=== PATIENT | female | born 1935 | race Caucasian/White ===

== ENCOUNTER → 2016-10-19 | Outpatient (CLI) | payer MEDICARE ==
[~2016-10-19] MED LIST: ALDOMET500 MG PO; ASPIRIN ADULT L81 M1 PO; ASPIRIN1 POW PO; CATAPRES0.2 MG PO; CLONIDINE; FLAGYL250 MG PO; LABETALOL; LABETALOL300 MG PO; METHYLDOPA PO; MULTI VITAMINS1 TAB PO; ZITHROMAX250 MG PO; ZOCOR40 MG
== END | disposition home or self-care (01) ==
LOC: CARD 09:18
DX: I35.1 Nonrheumatic aortic (valve) insufficiency (principal); R01.1 Cardiac murmur, unspecified; I35.0 Nonrheumatic aortic (valve) stenosis; I34.0 Nonrheumatic mitral (valve) insufficiency; I07.1 Rheumatic tricuspid insufficiency

== ENCOUNTER → 2017-03-15 | Outpatient (CLI) | payer MEDICARE ==
[2017-03-15 15:39] LABS: HEMATOCRIT 37.2 % (37.0-47.0); HEMOGLOBIN 12.6 g/dl (12.0-16.0); MEAN CELL VOLUME 95.1 fl (81.0-99.0); MEAN CORPUSCULAR HGB 32.2 pg (27.0-31.0); MEAN CORPUSCULAR HGB CONC 33.9 g/dl (33.0-37.0); MEAN PLATELET VOLUME 11.7 fl (9.6-12.3); PLATELET COUNT AUTOMATED 113 10*3/uL (130-400); RED BLOOD COUNT 3.91 10*6/uL (4.10-5.10); RED CELL DISTRI WIDTH 13.9 % (0-14.5); WHITE BLOOD COUNT 6.8 10*3/uL (4.8-10.8)
[2017-03-15 15:53] LABS: ACT PARTIAL THROMBO TIME 25.7 SECONDS (20.8-31.5); INTERNATIONAL NORM RATIO 1.1 (2.0-3.5)
[2017-03-15 16:05] LABS: BASOPHILS 3 % (0-1); TOTAL CELLS COUNTED 100 #CELLS
[2017-03-15 16:07] LABS: PLATELET SUFFICIENCY NORMAL (NORMAL)
== END | disposition home or self-care (01) ==
LOC: LAB 13:49 → US 14:00
PROVIDERS: Internal Medicine
DX: R89.9 Unspecified abnormal finding in specimens from other organs, systems and tissues (principal); D68.8 Other specified coagulation defects

== ENCOUNTER → 2017-10-27 | Outpatient (CLI) | payer MEDICARE | END | disposition home or self-care (01) | LOC: US 09:16 | DX: I51.7 Cardiomegaly (principal); I35.1 Nonrheumatic aortic (valve) insufficiency; I35.0 Nonrheumatic aortic (valve) stenosis; I34.8 Other nonrheumatic mitral valve disorders; Z86.79 Personal history of other diseases of the circulatory system; Z90.49 Acquired absence of other specified parts of digestive tract ==

== ENCOUNTER 2019-01-09 10:12 | Emergency (ER) | payer MEDICARE ==
[~2019-01-09] VITALS: Wt 84.4 kg
[2019-01-09 11:32] VITALS: BP 144/78
[2019-01-09] MEDS ORDERED: NORVASC5 MG PO (11:36)
== END 2019-01-09 11:37 | disposition home or self-care (01) ==
LOC: ED 10:12
DX: I10 Essential (primary) hypertension (principal); Z91.041 Radiographic dye allergy status; Z88.1 Allergy status to other antibiotic agents; Z79.899 Other long term (current) drug therapy; Z79.82 Long term (current) use of aspirin; Z90.710 Acquired absence of both cervix and uterus

== ENCOUNTER 2019-09-14 14:46 | Emergency (ER) | payer MEDICARE ==
[2019-09-14 14:46] VITALS: BP 00/00
[~2019-09-14 14:46] MED LIST changes: +NORVASC5 MG PO
== END 2019-09-14 14:53 | disposition expired ==
LOC: ED 14:46
DX: I46.9 Cardiac arrest, cause unspecified (principal); I10 Essential (primary) hypertension; Z91.041 Radiographic dye allergy status; Z88.8 Allergy status to other drugs, medicaments and biological substances; Z79.82 Long term (current) use of aspirin; Z79.899 Other long term (current) drug therapy